=== PATIENT | male | born 1990 | race Caucasian/White ===

== ENCOUNTER 2021-04-22 10:48 | Emergency (ER) | payer SELFPAY ==
[2021-04-22] MEDS ORDERED: LIDOCAINE 1% MPF 5 ML VIAL ONE (11:50)
--- NOTE | 2021-04-22 12:06 | RAD REPORT ---
EXAM DESCRIPTION: RAD - Hand Right 3 View - 04/22/2021 11:53 am CLINICAL HISTORY: laceration Pain and swelling COMPARISON: No comparisons FINDINGS: Soft tissue laceration is seen near the base of the first metatarsal. No bone involvement is evident. No radiopaque foreign body is seen.
--- NOTE | 2021-04-22 13:21 | ER ---
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 Coronavirus screen: Vaccine status: Patient reports being unvaccinated. Client denies travel out of the [place] in the last 14 days. At this time, the client does not indicate any symptoms associated with coronavirus-19. Ebola Screen: Patient denies travel to an Ebola-affected area in the 21 days before illness onset. Complicating Factors: Glass or an other foreign body is present in the wound. Initial Sepsis Screen: Does the patient meet any 2 criteria? No. Patient's initial sepsis screen is negative. Does the patient have a suspected source of infection? Yes: Bone or joint infection. Risk Assessment: Do you want to hurt yourself or someone else? Patient reports no desire to harm self or others. Onset of symptoms was April 22, 2021. 11:09 Method Of Arrival: Ambulatory ll1 11:09 Acuity: DAYANNA 4 ll1 Historical: - Allergies: 11:10 No Known Allergies; ll1 - PMHx: 11:10 None; ll1 - PSHx: 11:10 None; ll1 - Immunization history:: Client reports having NOT received the Covid vaccine. Last tetanus immunization: < 5 years ago. - Social history:: Smoking status: Patient denies any tobacco usage or history of. Screenin:43 Abuse screen: Denies threats or abuse. Denies injuries from another. Nutritional tc5 screening: No deficits noted. Tuberculosis screening: No symptoms or risk factors identified. Fall Risk None identified. Assessment: 11:38 Pain: Complains of pain in lateral aspect of right wrist. Neuro: No deficits noted. tc5 Cardiovascular: possible arterial lac, attempt to clean, large amount of blood from lac, cleaned quickly with dynahex, and applied pressure with steril 4x4, pt instructed to maintain the pressure, pt understands by doing as instructed. . Respiratory: No deficits noted. GI: No deficits noted. : No deficits noted. 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 Vital Signs: 11:09 BP 134 / 78; Pulse 71; Resp 17; Temp 97.8; Pulse Ox 97% ; Weight 95.25 kg; Height 5 ft. ll1 8 in. (172.72 cm); Pain 0/10; 14:23 BP 137 / 94; Pulse 71; Resp 16; Pulse Ox 98% ; Pain 0/10; tc5 11:09 Body Mass Index 31.93 (95.25 kg, 172.72 cm) ll1 ED Course: 10:49 Patient arrived in ED. rg4 11:10 Triage completed. ll1 11:11 Arm band placed on Patient placed in an exam room, on a stretcher. ll1 11:14 Carlos Wakefield NP is PHCP. pm1 11:14 Gustavo Gruber MD is Attending Physician. pm1 11:21 Linda Mckeon, RN is Primary Nurse. tc5 11:53 Hand Right 3 View XRAY In Process Unspecified. EDMS 13:20 Heri Roger MD is Referral Physician. pm1 14:24 Wound care: cleaned and dressed wound, pt tolerated well. tc5 Administered Medications: 11:37 Drug: Lidocaine (1 %) 5 ml {Note: at bedside for proceedure.} Volume: 5 ml; Route: tc5 Infiltration; 14:25 Follow up: Response: No adverse reaction tc5 Outcome: 13:21 Discharge ordered by MD. pm1 14:25 Patient left the ED. tc5 Signatures: Dispatcher [employer] EDMS Carlos Wakefield NP INSURANCE BUSINESS ANALYST pm1 Kaylen Lyon rg4 Curt Boston RN RN ll1 Linda Mckeon RN RN tc5
--- NOTE | 2021-04-22 13:21 | EDPHYS ---
Physician Documentation [facility] Name: Ramy Degroot Jr Age: 31 yrs Sex: Male : 1990 Arrival Date: 04/22/2021 Time: 10:49 Bed 16 Private MD: ED Physician Gustavo Gruber HPI: 04/22 11:29 This 31 yrs old Male presents to ER via Ambulatory with complaints of pm1 Laceration to right wrist. 11:29 The patient has a laceration occurred at work, The injury was Patient was breaking pm1 glass of a frame and accidentally cut right wrist. The laceration(s) is(are) located on the lateral aspect of right wrist. Onset: The symptoms/episode began/occurred just prior to arrival. Associated signs and symptoms: Pertinent negatives: deformity, dizziness, numbness distal to injury, suspected foreign body. The patient has not experienced similar symptoms in the past. The patient has not recently seen a physician. Patient reports tetanus within 2 years. Historical: - Allergies: 11:10 No Known Allergies; ll1 - PMHx: 11:10 None; ll1 - PSHx: 11:10 None; ll1 - Immunization history:: Client reports having NOT received the Covid vaccine. Last tetanus immunization: < 5 years ago. - Social history:: Smoking status: Patient denies any tobacco usage or history of. ROS: 11:29 Constitutional: Negative for fever, chills, and weight loss, Cardiovascular: Negative pm1 for chest pain, palpitations, and edema, Respiratory: Negative for shortness of breath, cough, wheezing, and pleuritic chest pain. 11:29 Neuro: Negative for headache, weakness, numbness, tingling, and seizure. 11:29 Skin: Positive for laceration(s), of the lateral aspect of right wrist. 11:29 All other systems are negative. Exam: 11:29 Constitutional: This is a well developed, well nourished patient who is awake, alert, pm1 and in no acute distress. Head/Face: Normocephalic, atraumatic. 11:29 Cardiovascular: Exam negative for acute changes, Rate: normal, Rhythm: regular, Pulses: no pulse deficits are appreciated. 11:29 Respiratory: Exam negative for acute changes, respiratory distress, shortness of breath. 11:29 Skin: Appearance: normal except for affected area, injury, laceration(s), the wound is approximately 3 cm(s), of the lateral aspect of right wrist. 11:29 Neuro: Exam negative for acute changes, Orientation: is normal, Mentation: is normal, Motor: is normal, moves all fours. Vital Signs: 11:09 BP 134 / 78; Pulse 71; Resp 17; Temp 97.8; Pulse Ox 97% ; Weight 95.25 kg; Height 5 ft. ll1 8 in. (172.72 cm); Pain 0/10; 14:23 BP 137 / 94; Pulse 71; Resp 16; Pulse Ox 98% ; Pain 0/10; tc5 11:09 Body Mass Index 31.93 (95.25 kg, 172.72 cm) ll1 Laceration: 13:19 Wound Repair of 4cm ( 1.6in ) subcutaneous laceration to lateral aspect of right wrist. pm1 Linear shaped.. Distal neuro/vascular/tendon intact. Anesthesia: Local anesthetic administered with 3 mls of 1% lidocaine. Wound prep: Extensive cleansing with hibiclenz by me, Wound irrigation with saline by me, Wound explored extensively, Copious irrigation. Skin closed with 6 4-0 Prolene using simple sutures and sterile technique. Dressed with Neosporin, 4x4's. Patient tolerated well. MDM: 11:14 Patient medically screened. pm1 13:19 Data reviewed: vital signs. Data interpreted: Pulse oximetry: on room air is 97 %. pm1 Interpretation: normal. Counseling: I had a detailed discussion with the patient and/or guardian regarding: the historical points, exam findings, and any diagnostic results supporting the discharge/admit diagnosis, radiology results, the need for outpatient follow up, to return to the emergency department if symptoms worsen or persist or if there are any questions or concerns that arise at home. 16:54 ED course: Patient called back requesting stronger pain medication than Tylenol and pm1 ibuprofen for laceration pain. Patient was offered pain medication on upon discharge but he refused. Therefore will now prescribe tramadol 50 mg every 8 prescription and the patient will drive back to the ER to pick it up. 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 04/22 11:17 Order name: Hand Right 3 View XRAY; Complete Time: 12:08 pm1 04/22 11:17 Order name: Dressing - Wound; Complete Time: 11:38 pm1 10 11:17 Order name: Gloves, Sterile; Complete Time: 11:38 pm1 04/22 11:17 Order name: Prolene, Sutures; Complete Time: 11:38 pm1 04/22 11:17 Order name: Setup Suture Tray; Complete Time: 11:38 pm1 Administered Medications: 11:37 Drug: Lidocaine (1 %) 5 ml {Note: at bedside for proceedure.} Volume: 5 ml; Route: tc5 Infiltration; 14:25 Follow up: Response: No adverse reaction tc5 Disposition: 17:33 Co-signature as Attending Physician, Gustavo Gruber MD I agree with the assessment and rn plan of care. Attestation: The patient's history, exam findings, diagnostics, and a summary of any interventions or procedures was reviewed in detail with Carlos Wakefield NP. Disposition Summary: 04/22/21 13:21 Discharge Ordered Location: Home pm1 Problem: new pm1 Symptoms: have improved pm1 Condition: Stable pm1 Diagnosis - Laceration without foreign body of right wrist pm1 Followup: pm1 - With: Emergency Department - When: As needed - Reason: Worsening of condition Followup: pm1 - With: Heri Roger MD - When: 10 - 14 days - Reason: Recheck today's complaints, Continuance of care, Staple/Suture removal, Re-evaluation by your physician Followup: pm1 - With: Private Physician - When: 10 - 14 days - Reason: Recheck today's complaints, Continuance of care, Staple/Suture removal, Re-evaluation by your physician Discharge Instructions: - Discharge Summary Sheet pm1 - Laceration Care, Adult pm1 Forms: - Medication Reconciliation Form pm1 - Thank You Letter pm1 - Antibiotic Education pm1 - Prescription Opioid Use pm1 Prescriptions: - Cephalexin 500 mg Oral Capsule - take 1 capsule by ORAL route every 8 hours for 10 days; 30 capsule; Refills: 0, pm1 Product Selection Permitted - Tramadol 50 mg Oral Tablet - take 1 tablet by ORAL route every 8 hours as needed; 12 tablet; Refills: 0, pm1 Product Selection Permitted Signatures: Dispatcher [employer] EDMN Gustavo Gruber MD MD rn Marinas, Patrick, NP VEHICLE WINDOW TINTER pm1 Curt Boston RN RN ll1 Cassaboom, Linda, RN RN tc5
[2021-04-22 14:29] VITALS: TEMP 97.8
[2021-04-22 14:30] VITALS: BP 137/94; O2SAT 98
== END 2021-04-22 14:25 | disposition home or self-care (01) ==
LOC: ER 10:48
PROC: 0JQG0ZZ Repair Right Lower Arm Subcutaneous Tissue and Fascia, Open Approach (ICD-10-PCS; principal; 2021-04-22)
DX: S61.511A Laceration without foreign body of right wrist, initial encounter (principal); W25.XXXA Contact with sharp glass, initial encounter; Y93.89 Activity, other specified; Y92.9 Unspecified place or not applicable
CPT/HCPCS: 99283